=== PATIENT | female | born 1970 ===

== ENCOUNTER 2017-07-08 08:40 | Outpatient (CLI) | payer OTHER | END 2017-07-08 08:41 | disposition home or self-care (01) | LOC: BICMAMMO 08:40 | PROVIDERS: ATTEND Obstetrics & Gynecology | DX: Z12.31 Encounter for screening mammogram for malignant neoplasm of breast (principal); Z80.3 Family history of malignant neoplasm of breast; Z98.82 Breast implant status | CPT/HCPCS: 77063; 77067 ==